=== PATIENT | female | born 1960 | race Caucasian/White ===

== ENCOUNTER → 2019-05-07 11:32 | Outpatient (CLI) | payer BC, SELFPAY ==
--- NOTE | ~2019-05-07 | DEXA_ITS ---
Bone Density Report Name: Kita Garcia Age: 58 Sex: Female Ethnicity: White Date of : 1960 Indication: monitoring treatment; postmenopausal Referring Provider: Renetta, Gill Study: Bone densitometry was performed. Exam Date: May 07, 2019 Accession number: [id number] Bone Density: Region BMD T-score Z-score Classification AP Spine (L1-L4) 1.132 0.8 2.0 Normal Femoral Neck (Left) 1.276 3.9 5.0 Normal Total Hip (Left) 1.229 2.4 3.2 Normal Femoral Neck (Right) 1.217 3.3 4.5 Normal Total Hip (Right) 1.145 1.7 2.5 Normal Total Hip Mean 1.187 2.1 2.9 Normal World Health Organization criteria for BMD impression classify patients as: Normal (T-score at or above -1.0), Osteopenia (T-score between -1.0 and -2.5), or Osteoporosis (T-score at or below -2.5). 10-year Fracture Risk: FRAX not reported because: All T-scores for Spine Total, Hip Total, Femoral Neck at or above -1.0 Treated for osteoporosis Previous Exams: Region Exam Age BMD T-score BMD Change BMD Change Date g/cm2 vs Baseline vs Previous AP Spine(L1-L4) 05/07/2019 58 1.132 0.8 -0.021 -0.021 10/01/2014 53 1.153 1.0 Total Hip(Left) 05/07/2019 58 1.229 2.4 0.030 0.030 10/01/2014 53 1.199 2.1 Total Hip(Right) 05/07/2019 58 1.145 1.7 -0.012 -0.012 10/01/2014 53 1.157 1.8 *Denotes significance at 95% confidence level, LSC for AP Spine = 0.022 g/cm2, LSC for Total Hip = 0.027 g/cm2 Clinical Information Provided by Patient: Is being treated for osteoporosis Has used the following medications: HRT (i.e. estrogen/hormone therapy), Vitamin D Patient maximum height was 66 Menopause Age: 53 No regular weight bearing exercise Drinks caffeinated beverages Onset of menses at age 15 Number of children 3 Impression: The patient has normal bone mass. No significant bone loss was observed. Discussion: PATIENT UNDER TREATMENT WITH NO SIGNIFICANT BMD LOSS SINCE LAST EXAM. In an untreated patient, BMD typically declines with age. A lack of decline or gain is usually a sign that treatment is efficacious and fracture risk is reduced. It is important to ask patients whether they are taking their medications and to encourage continued and appropriate compliance with their osteoporosis therapies to reduce fracture risk. It is also important to review their risk factors and encourage appropriate calcium and
--- NOTE | ~2019-05-07 | MM_ITS ---
EXAMINATION: MM screening [facility] BI w vincent HISTORY: Screening mammogram TECHNIQUE: Craniocaudal and mediolateral oblique 3-D tomosynthesis images were obtained and synthetic 2-D images were generated. CAD analysis was submitted and interpreted. COMPARISON: 09/08/2017, 04/07/2016, 02/11/2015 BREAST PARENCHYMAL COMPOSITION: There are scattered areas of fibroglandular density. FINDINGS: There is no evidence of suspicious mass, calcification, or architectural distortion to sugg est malignancy in either breast. There has been no suspicious interval change. IMPRESSION: 1. No mammographic evidence of malignancy. 2. Recommend routine screening mammography in one year. BI-RADS Category 1: Negative Reviewed, dictated and finalized at location A. 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
== END ==
PROVIDERS: PCP Family Medicine; Visit Provider Nurse Practitioner
DX: Z12.31 Encounter for screening mammogram for malignant neoplasm of breast (principal); Z13.820 Encounter for screening for osteoporosis; Z78.0 Asymptomatic menopausal state
CPT/HCPCS: 77063; 77067; 77080

== ENCOUNTER → 2020-09-22 15:12 | Outpatient (CLI) | payer BC, SELFPAY ==
--- NOTE | ~2020-09-22 | MM_ITS ---
EXAMINATION: MM screening [facility] w vincent HISTORY: Screening mammogram TECHNIQUE: Craniocaudal and mediolateral oblique 3-D tomosynthesis images were obtained and synthetic 2-D images were generated. CAD analysis was submitted and interpreted. COMPARISON: 05/24/2019, 09/08/2017, 04/07/2016 bilateral digital screening mammogram examinations BREAST PARENCHYMAL COMPOSITION: There are scattered areas of fibroglandular density. FINDINGS: There is no evidence of suspicious mass, calcification, or architectural distortion to sugg est malignancy in either breast. There has been no suspicious interval change. IMPRESSION: 1. No mammographic evidence of malignancy. 2. Recommend routine screening mammography in one year. BI-RADS Category 1: Negative Reviewed, dictated and finalized at location A.
== END ==
PROVIDERS: Visit Provider Nurse Practitioner
DX: Z12.31 Encounter for screening mammogram for malignant neoplasm of breast (principal)
CPT/HCPCS: 77063; 77067

== ENCOUNTER → 2021-12-18 13:18 | Outpatient (CLI) | payer BC, SELFPAY ==
--- NOTE | ~2021-12-18 | MM_ITS ---
EXAMINATION: MM screening [facility] BI w vincent HISTORY: Screening mammogram TECHNIQUE: Craniocaudal and mediolateral oblique 3-D tomosynthesis images were obtained and synthetic 2-D images were generated. CAD analysis was submitted and interpreted. COMPARISON: 09/22/2020, 05/07/2019, 09/08/2017 bilateral screening mammogram examinations BREAST PARENCHYMAL COMPOSITION: There are scattered areas of fibroglandular density. FINDINGS: There is no evidence of suspicious mass, calcification, or architectural distortion to sugg est malignancy in either breast. There has been no suspicious interval change. IMPRESSION: 1. No mammographic evidence of malignancy. 2. Recommend routine screening mammography in one year. BI-RADS Category 1: Negative Reviewed, dictated and finalized at location A.
== END ==
PROVIDERS: PCP Family Medicine; Visit Provider Nurse Practitioner
DX: Z12.31 Encounter for screening mammogram for malignant neoplasm of breast (principal)
CPT/HCPCS: 77063; 77067

== ENCOUNTER → 2022-01-01 15:48 | Outpatient (CLI) | payer BC, SELFPAY ==
--- NOTE | ~2022-01-01 | XR_ITS ---
EXAMINATION: XR hand LT 2V DATE: 01/01/2022 16:40 INDICATION: Multiple joint pain. Arthritis. TECHNIQUE: 2 views of left hand were obtained. COMPARISON: None. FINDINGS: There is ulnar subluxation of second distal phalanx with respect to the middle phalanx. No fracture. There is moderate osteoarthritis of triscaphe joint, severe osteoarthritis of first carpome tacarpal joint, and mild osteoarthritis of most of the metacarpophalangeal joints and interphalangeal joints. There is severe osteoarthritis of second distal interphalangeal joint and moderate osteoarth ritis of first interphalangeal joint and third distal interphalangeal joint. IMPRESSION: 1. Polyarticular osteoarthritis. Reviewed, dictated and finalized at location A.
--- NOTE | ~2022-01-01 | XR_ITS ---
EXAMINATION: XR ankle RT 2V DATE: 01/01/2022 16:40 INDICATION: Multiple joint pain. Arthritis. TECHNIQUE: 2 views of right ankle were obtained. COMPARISON: None. FINDINGS: Bone alignment is normal. No acute fracture. There is heterotopic ossification distal to la teral malleolus, likely from old injury. Joint spaces are normal. There is enthesophytes at the poste rior and plantar aspects of calcaneal tuberosity. IMPRESSION: 1. No arthritis. Reviewed, dictated and finalized at location A. IMPRESSION: 1. No arthritis.
--- NOTE | ~2022-01-01 | XR_ITS ---
EXAMINATION: XR foot LT 2V DATE: 01/01/2022 16:41 INDICATION: Multiple joint pain. Arthritis. TECHNIQUE: 2 views of left foot were obtained. COMPARISON: None. FINDINGS: Bone alignment is normal. No fracture. There is mild osteoarthritis of first metatarsophala ngeal joint and some of the interphalangeal joints. There is an enthesophyte at plantar aspect of janessa caneal tuberosity. IMPRESSION: 1. Mild polyarticular osteoarthritis. Reviewed, dictated and finalized at location A.
--- NOTE | ~2022-01-01 | XR_ITS ---
EXAMINATION: XR foot RT 2V DATE: 01/01/2022 16:41 INDICATION: Multiple joint pain. Arthritis. TECHNIQUE: 2 views of right foot were obtained. COMPARISON: None. FINDINGS: There is moderate hallux valgus. No fracture. There is heterotopic ossification distal to l ateral malleolus. There is mild osteoarthritis of first metatarsophalangeal joint and some the interp halangeal joints. There are enthesophytes at the posterior and plantar aspects of calcaneal tuberosit y. IMPRESSION: 1. Mild polyarticular osteoarthritis. 2. Moderate hallux valgus. Reviewed, dictated and finalized at location A.
--- NOTE | ~2022-01-01 | XR_ITS ---
EXAMINATION: XR wrist LT 2V DATE: 01/01/2022 16:40 INDICATION: Multiple joint pain. Arthritis. TECHNIQUE: 2 views of left wrist were obtained. COMPARISON: None. FINDINGS: Bone alignment is normal. No fracture. There is moderate osteoarthritis of triscaphe joint and severe osteoarthritis of first carpometacarpal joint. IMPRESSION: 1. Polyarticular osteoarthritis. Reviewed, dictated and finalized at location A.
--- NOTE | ~2022-01-01 | XR_ITS ---
EXAMINATION: XR sacroiliac joints min 3V DATE: 01/01/2022 16:41 INDICATION: Multiple joint pain. Arthritis. TECHNIQUE: 3 views of the sacroiliac joints were obtained. COMPARISON: CT abdomen and pelvis 12/09/2018 FINDINGS: Bone alignment is normal. No fracture. There is mild lumbar spondylosis. There is mild oste oarthritis of the sacroiliac joints. IMPRESSION: 1. Mild osteoarthritis of the sacroiliac joints. No evidence of inflammatory arthropathy. Reviewed, dictated and finalized at location A. IMPRESSION: 1. Mild osteoarthritis of the sacroiliac joints. No evidence of inflammatory ar thropathy.
--- NOTE | ~2022-01-01 | XR_ITS ---
EXAMINATION: XR wrist RT 2V DATE: 01/01/2022 16:40 INDICATION: Multiple joint pain. Arthritis. TECHNIQUE: 2 views of right wrist were obtained. COMPARISON: None. FINDINGS: Bone alignment is normal. No fracture. There is a 6 mm nonaggressive lytic lesion in scapho id, which may be an enchondroma or subchondral cyst. There is severe osteoarthritis of triscaphe join t and first carpometacarpal joint. IMPRESSION: 1. Polyarticular osteoarthritis. Reviewed, dictated and finalized at location A.
--- NOTE | ~2022-01-01 | XR_ITS ---
EXAMINATION: XR ankle LT 2V DATE: 01/01/2022 16:40 INDICATION: Multiple joint pain. Arthritis. TECHNIQUE: 2 views of left ankle were obtained. COMPARISON: None. FINDINGS: Bone alignment is normal. No fracture. Joint spaces are normal. There is an enthesophyte at plantar aspect of calcaneal tuberosity. IMPRESSION: 1. No arthritis. Reviewed, dictated and finalized at location A. IMPRESSION: 1. No arthritis.
--- NOTE | ~2022-01-01 | XR_ITS ---
EXAMINATION: XR hand RT 2V DATE: 01/01/2022 16:40 INDICATION: Multiple joint pain. Arthritis. TECHNIQUE: 2 views of right hand were obtained. COMPARISON: None. FINDINGS: There is ulnar subluxation of second distal phalanx with respect to the middle phalanx. No fracture. There is a 6 mm nonaggressive lytic lesion in scaphoid, which may be an enchondroma or subc hondral cyst. There is severe osteoarthritis of triscaphe joint and first carpometacarpal joint. Ther e is moderate osteoarthritis of third metacarpophalangeal joint and mild osteoarthritis of the other metacarpophalangeal joints. There is mild to moderate osteoarthritis of most of the interphalangeal j oints. There is severe osteoarthritis of second and third distal interphalangeal joints and first int erphalangeal joint. IMPRESSION: 1. Polyarticular osteoarthritis. Reviewed, dictated and finalized at location A.
== END ==
PROVIDERS: PCP Family Medicine; Visit Provider Internal Medicine Rheumatology
DX: R53.81 Other malaise (principal); M79.10 Myalgia, unspecified site; M19.071 Primary osteoarthritis, right ankle and foot; M20.11 Hallux valgus (acquired), right foot; M19.072 Primary osteoarthritis, left ankle and foot; M19.041 Primary osteoarthritis, right hand; M53.3 Sacrococcygeal disorders, not elsewhere classified; M19.042 Primary osteoarthritis, left hand; M19.032 Primary osteoarthritis, left wrist; M19.031 Primary osteoarthritis, right wrist
CPT/HCPCS: 72202; 73100; 73120; 73600; 73620

== ENCOUNTER 2023-04-21 13:44 | Outpatient (CLI) | payer BC, SELFPAY ==
--- NOTE | 2023-04-21 | ECHO_ITS ---
Patient Info Name: Kita Garcia Age: 62 years : 1960 Gender: Female Ht: 66 in Wt: 244 lbs BSA: 2.32 m2 HR: 101 bpm BP: 116 / 85 mmHg Technical Quality: Fair Exam Date: 04/21/2023 2:18 PM Exam Location: Echo Lab Patient Status: Outpatient Admit Date: 04/21/2023 Staff Ordering Physician: SEUN, PEE Attending Provider: SEUN, PEE Exam Type: CA echo doppler color flow Study Info Indications R01.1 - Cardiac murmur, unspecified Complete two-dimensional, color flow and Doppler transthoracic echocardiogram is performed. Summary 1. Complete two-dimensional, color flow and Doppler transthoracic echocardiogram is performed. 2. Left ventricular chamber dimension is normal. 3. Left ventricular systolic function is normal, estimated at 65-70%. 4. The left ventricular diastolic function is grade I diastolic dysfunction. 5. Right ventricular systolic function is normal. 6. There is mild tricuspid valve regurgitation. 7. There is mild pulmonic regurgitation. Left Ventricle Left ventricular chamber dimension is normal. Left ventricular systolic function is normal, estimated at 65-70%. There is no increased left ventricular wall thickness. The left ventricular diastolic function is grade I diastolic dysfunction. Right Ventricle Right ventricular chamber dimension is normal. Right ventricular systolic function is normal. Left Atria Left atrial chamber dimension is normal. Right Atria Right atrial chamber dimension is normal. Atrial Septum Intact interatrial septum visualized by color flow imaging. Aortic Valve The aortic valve is trileaflet. There is mild aortic valve sclerosis. There is no aortic valve stenosis. There is no aortic valve regurgitation. Pulmonic Valve The pulmonic valve is not well visualized. There is mild pulmonic regurgitation. Mitral Valve There is trace mitral valve regurgitation. Tricuspid Valve There is mild tricuspid valve regurgitation. Pericardium/Pleural There is no pericardial effusion. Inferior Vena Cava Normal inferior vena cava with >50% collapse upon inspiration consistent with normal right atrial pressure, 3 mmHg. Aorta The aortic root size at the sinus of Valsalva is normal. Left Ventricular Outflow Tract Name Value Normal LVOT 2D LVOT Diameter 2.1 cm Pulmonic Valve Name Value Normal PV Doppler PV Peak Velocity 90 cm/s PV Peak Gradient 3 mmHg Mitral Valve Name Value Normal MV Doppler MV [employer] [place] 449 cm/s2 MV PHT 39 ms MV Area (PHT) 5.7 cm2 4.0-5.0 MV Diastolic Function MV E Peak Velocity 60 cm/s
--- NOTE | 2023-04-26 16:26 | WPDHOLTEREM ---
Holter/Event Monitor Holter/Event Monitor Date of procedure: 04/21/23 Holter/Event Procedure: 48 Hr Holter Monitor Indications: Palpitations Conclusion: 1. 48 hour holter monitor on 04/21/23. 2. Underlying rhythm is sinus rhythm. HR range 61-122 bpm; average 100 bpm. 3. There are 15 premature supraventricular complexes, 1 supraventricular couplet and 1 supraventricular triplet. No supraventricular tachycardia. 4. There are 493 premature ventricular complexes and 6 ventricular trigeminy. No ventricular tachycardia. 5. No sinoatrial or atrioventricular blocks. No significant pauses greater than 2 seconds. 6. No symptoms available for correlation.
== END 2023-04-21 13:45 | disposition home or self-care (01) ==
DX: R00.2 Palpitations (principal); R01.1 Cardiac murmur, unspecified
CPT/HCPCS: 93225; 93226; 93306

== ENCOUNTER → 2023-05-11 14:06 | Outpatient (CLI) | payer BC, SELFPAY ==
--- NOTE | ~2023-05-11 | MM_ITS ---
EXAMINATION: MM screening [facility] BI w vincent HISTORY: Screening mammogram TECHNIQUE: Craniocaudal and mediolateral oblique 3-D tomosynthesis images were obtained and synthetic 2-D images were generated. CAD analysis was submitted and interpreted. COMPARISON: 12/18/2021, 09/22/2020, 05/07/2019 bilateral screening mammogram examinations BREAST PARENCHYMAL COMPOSITION: There are scattered areas of fibroglandular density. FINDINGS: There is no evidence of suspicious mass, calcification, or architectural distortion to sugg est malignancy in either breast. There has been no suspicious interval change. IMPRESSION: 1. No mammographic evidence of malignancy. 2. Recommend routine screening mammography in one year. BI-RADS Category 1: Negative Reviewed, dictated and finalized at location A. 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
== END ==
PROVIDERS: Visit Provider Nurse Practitioner
DX: Z12.31 Encounter for screening mammogram for malignant neoplasm of breast (principal)
CPT/HCPCS: 77063; 77067

== ENCOUNTER 2024-03-12 02:08 | Day surgery (SDC) | payer BC, SELFPAY ==
[2024-02-22 11:44] VITALS: BMI 38.4
[2024-03-12 08:19] VITALS: BP 119/80; PULSE 95; RESP 20; TEMP 35.8; O2SAT 97
[2024-03-12] MEDS: LACTATED RINGERS 1,000 ML 150 ML IV CONT (08:36)
--- NOTE | 2024-03-12 09:20 | P.PNAN_ITS ---
Anes - Initial Pre Proc Eval Procedure: Operation Date: 03/12/24 09:30 Proposed Procedures p Screening Colonoscopy - Caleb Serrano MD Date/Time: 03/12/24 09:20 Surgeon: Caleb Serrano MD Pre Op Diagnosis: screening colon Patient Data Age: 63 Gender: F Height: 1.68 m Weight: 106.3 kg Last Vital Signs Temp 96.4 F L 03/12/24 08:19 Pulse 95 03/12/24 08:19 Resp 20 03/12/24 08:19 BP 119/80 03/12/24 08:19 Pulse Ox 97 03/12/24 08:19 O2 Del Method Room Air 03/12/24 08:19 Allergies Allergy/AdvReac Type Severity Reaction Status Date / Time No Known Allergies Allergy Verified 03/12/24 08:15 Home Medications Medication Instructions Recorded Confirmed Type cholecalciferol (vitamin D3) 1,250 1,250 mcg PO WEEKLY 10/01/21 03/12/24 History mcg (50,000 unit) capsule lutein 40 mg capsule 40 mg PO DAILY 10/01/21 03/12/24 History meloxicam 15 mg tablet 15 mg PO DAILY 10/01/21 03/12/24 History sertraline 100 mg tablet (Zoloft) 100 mg PO DAILY 10/01/21 03/12/24 History acyclovir 5 % topical ointment See Rx Instructions .Route 12/15/21 03/12/24 Rx .COMPLEX #10 grams celecoxib 200 mg capsule (Celebrex) 200 mg PO BID 06/16/22 03/12/24 History hydroxychloroquine 200 mg tablet 200 mg PO BID 06/16/22 03/12/24 History semaglutide (weight loss) 0.5 0.5 mg subcut WEEKLY 02/22/24 03/12/24 History mg/0.5 mL subcutaneous pen injector (Wegovy) folic acid 1 mg tablet 1 mg PO DAILY 03/12/24 03/12/24 History gabapentin 300 mg capsule 300 mg PO BID 03/12/24 03/12/24 History propranolol 20 mg tablet 20 mg PO BID 03/12/24 03/12/24 History Patient hx anesthesia problems: none Family hx anesthesia problems: none Results Review: All pre-operative results and documents have been reviewed as part of the pre- operative evaluation. [facility] Past Medical History Medical History Postmenopausal Surgical History Surgical History H/O shoulder surgery Hx of knee surgery Family History Family History Father Family history of cardiovascular disease, Onset Age: 74 Family history of heart disease in male family member before age 55 Mother Family history of arthritis Grandparent Diabetes mellitus Social History Social History (Updated 10/01/21 @ 13:30 by Komal Wetzel) Social History: Smoking status: Never smoker Second hand tobacco smoke exposure: No Alcohol intake: current Drinks per week: 6 Substance use: never Substance use type: marijuana Other substance usage details: wilmar Living arrangements: with family Occupation/Education: occupation Gender identity (if verbalized by the patient): Female Sexual Orientation (if Verbalized by the Patient): Straight or Heterosexual Spiritual care concerns: No Anes - Eval Final PreProcedure Day of Procedure 03/12/24 09:20 Patient weight: obese Heart: regular rate and rhythm Lungs: clear to auscultation Airway: Mallampati scale class II Neurological: alert and oriented Last oral intake: >/= 8 hours ASA classification: III Emergent: no Anesthetic plan: proceed Anesthesia type and monitoring: general GIVS and standard monitoring Results Review: All pre-operative results and documents have been reviewed as part of the pre- operative evaluation. Informed Consent: The patient's anesthetic plan and its attendant risks and benefits were discussed with the patient/family/POA. Questions were solicited and answers provided to the satisfaction of the patient/family/POA.
--- NOTE | 2024-03-12 09:37 | PM.IMHP ---
H&P: HPI History of Present Illness Date/Time: 03/12/24 09:37 Chief Complaint: History of colon polyps Narrative: The patient has a history of colonic polyps, the last colonoscopy was more than 5 years ago. The patient is asymptomatic from a GI standpoint, and there is no family history of colorectal cancer Review of Systems Review of Systems: All systems reviewed & are unremarkable except as noted in HPI and below PMFSH Past Medical History Medical History Postmenopausal Surgical History Surgical History H/O shoulder surgery Hx of knee surgery Family History Family History Father Family history of cardiovascular disease, Onset Age: 74 Family history of heart disease in male family member before age 55 Mother Family history of arthritis Grandparent Diabetes mellitus Social History Social History (Updated 10/01/21 @ 13:30 by Komal Wetzel) Social History: Smoking status: Never smoker Second hand tobacco smoke exposure: No Alcohol intake: current Drinks per week: 6 Substance use: never Substance use type: marijuana Other substance usage details: snehademetria Living arrangements: with family Occupation/Education: occupation Gender identity (if verbalized by the patient): Female Sexual Orientation (if Verbalized by the Patient): Straight or Heterosexual Spiritual care concerns: No Meds Home Medications and Allergies Home Medications Medication Instructions Recorded Confirmed Type cholecalciferol (vitamin D3) 1,250 1,250 mcg PO WEEKLY 10/01/21 03/12/24 History mcg (50,000 unit) capsule lutein 40 mg capsule 40 mg PO DAILY 10/01/21 03/12/24 History meloxicam 15 mg tablet 15 mg PO DAILY 10/01/21 03/12/24 History sertraline 100 mg tablet (Zoloft) 100 mg PO DAILY 10/01/21 03/12/24 History acyclovir 5 % topical ointment See Rx Instructions .Route 12/15/21 03/12/24 Rx .COMPLEX #10 grams celecoxib 200 mg capsule (Celebrex) 200 mg PO BID 06/16/22 03/12/24 History hydroxychloroquine 200 mg tablet 200 mg PO BID 06/16/22 03/12/24 History semaglutide (weight loss) 0.5 0.5 mg subcut WEEKLY 02/22/24 03/12/24 History mg/0.5 mL subcutaneous pen injector (Brett) folic acid 1 mg tablet 1 mg PO DAILY 03/12/24 03/12/24 History gabapentin 300 mg capsule 300 mg PO BID 03/12/24 03/12/24 History propranolol 20 mg tablet 20 mg PO BID 03/12/24 03/12/24 History Allergies Allergy/AdvReac Type Severity Reaction Status Date / Time No Known Allergies Allergy Verified 03/12/24 08:15 Vital Signs Vital Signs - 24 hr 03/12/24 08:19 Temperature 96.4 F L Pulse Rate 95 Respiratory Rate 20 Blood Pressure 119/80 Pulse Oximetry 97 Oxygen Delivery Room Air Exam Const: General: cooperative and healthy appearing Resp: Effort & Inspection: normal respiratory effort and able to speak in complete sentences Auscultation: clear to auscultation bilaterally Cardio: Rate: regular rate Rhythm: regular rhythm GI: Inspection: normal to inspection GI Palp: No No hepatosplenomegaly present Auscultation: normal bowel sounds Rectal Exam: deferred Skin: General skin exam: normal color Psych: Appearance: grossly normal Mental Status: mental status grossly normal Assessment and Plan Assessment and plan (1) Screening for colorectal cancer: Code(s): Z12.11 - Encounter for screening for malignant neoplasm of colon; Z12.12 - Encounter for screening for malignant neoplasm of rectum Status: Acute Assessment and Plan: The patient is deemed a good candidate for the procedure. Consent signed. Will proceed.
[2024-03-12 10:04] VITALS: BP 106/66; PULSE 67; RESP 19; O2SAT 98
[2024-03-12 10:14] VITALS: BP 104/74; PULSE 59; RESP 18; O2SAT 94
[2024-03-12 10:24] VITALS: BP 112/75; PULSE 57; RESP 18; O2SAT 99
== END 2024-03-12 10:33 | disposition home or self-care (01) ==
PROVIDERS: Referring Provider Internal Medicine Gastroenterology; Visit Provider Internal Medicine Gastroenterology
PROC: 0DJD8ZZ Inspection of Lower Intestinal Tract, Via Natural or Artificial Opening Endoscopic (ICD-10-PCS; CPT 45378; principal; 2024-03-12 09:30)
DX: Z12.11 Encounter for screening for malignant neoplasm of colon (principal); D12.5 Benign neoplasm of sigmoid colon; E66.9 Obesity, unspecified; Z68.37 Body mass index [BMI] 37.0-37.9, adult; F12.90 Cannabis use, unspecified, uncomplicated; Z79.1 Long term (current) use of non-steroidal anti-inflammatories (NSAID); Z79.85 Long-term (current) use of injectable non-insulin antidiabetic drugs; Z98.890 Other specified postprocedural states; Z82.49 Family history of ischemic heart disease and other diseases of the circulatory system
CPT/HCPCS: 45385; 88305; 88342; J2704; J7120

== ENCOUNTER 2024-08-15 13:28 | Outpatient (CLI) | payer OTHER, SELFPAY ==
--- NOTE | ~2024-08-15 | MM_ITS ---
EXAMINATION: MM screening [facility] BI w vincent HISTORY: Screening TECHNIQUE: Craniocaudal and mediolateral oblique 3-D tomosynthesis images were obtained and synthetic 2-D images were generated. CAD analysis was submitted and interpreted. COMPARISON: Comparison to multiple prior studies sequentially, with oldest reviewed study dated 10/2017. BREAST PARENCHYMAL COMPOSITION: Not dense: There are scattered areas of fibroglandular density. FINDINGS: There is no evidence of suspicious mass, calcification, or architectural distortion to sugg est malignancy in either breast. There has been no suspicious interval change. IMPRESSION: 1. No mammographic evidence of malignancy. 2. Recommend routine screening mammography in one year. BI-RADS Category 1: Negative Reviewed, dictated and finalized at location A.
== END 2024-08-15 13:29 | disposition home or self-care (01) ==
PROVIDERS: Visit Provider Nurse Practitioner
DX: Z12.31 Encounter for screening mammogram for malignant neoplasm of breast (principal)
CPT/HCPCS: 77063; 77067